=== PATIENT | male | born 1990 | race Caucasian/White ===

== ENCOUNTER → 2016-03-05 | Outpatient (CLI) | payer BC ==
[~2016-03-05] MED LIST: HYDR-3875 PO; MELA5TAB14 PO; METH5TAB5 PO; NITR-68 PO; TAMS0.4C98 PO
--- NOTE | 2016-03-05 13:51 | Diagnostic Imaging Report ---
INDICATION: Nephrolithiasis, post ESWL. TECHNIQUE: KUB obtained at 1:12 p.m. and compared with 02/06/2016. FINDINGS: Abdominal bowel gas pattern is unremarkable. There are no suspicious calculi over the pelvis. The calcification to the left of L4 visualized in the prior study is no longer seen. There are no overt calculi overlying the renal shadows. IMPRESSION: No radiopaque calculi visualized at this time. Unremarkable bowel gas pattern. Dictated by: Dictated on workstation # [id number]
== END ==
LOC: RAD 12:52
PROVIDERS: ATTEND Urology
DX: N20.0 Calculus of kidney (principal); Z98.890 Other specified postprocedural states
CPT/HCPCS: 74000

== ENCOUNTER → 2018-04-20 | Outpatient (CLI) | payer BC ==
--- NOTE | 2018-04-20 10:24 | Diagnostic Imaging Report ---
INDICATION: Injury to right hand. TIME OF EXAM: 09:41 a.m. Three views right hand were obtained. Images are obscured due to overlying cast material. There appears to be a fracture of the distal fifth metacarpal with mild volar angulation of the distal fracture fragment. Remaining metacarpals are intact. Phalanges are somewhat obscured as well but no gross abnormality is seen. Carpus is unremarkable. IMPRESSION: Limited study. There appears to be a mildly angulated fracture of the distal fifth metacarpal. Dictated by: Dictated on workstation # [id number]
--- NOTE | 2018-04-20 11:02 | Diagnostic Imaging Report ---
Indication: Injury to right hand AP, oblique, and lateral views of the right hand are obtained at 1024 hrs am, and compared to same day at 941 hours a.m. Overlying cast is in place. Fracture of the distal aspect of fifth metacarpal is noted, with improved alignment compared to the previous study. There is no other bony abnormality. IMPRESSION: Limited study. Improved alignment of fifth metacarpal fracture when compared to study earlier today. Dictated by: Dictated on workstation # [id number]
== END ==
LOC: RAD FS 09:51
PROVIDERS: ATTEND Nurse Practitioner
DX: S62.336A Displaced fracture of neck of fifth metacarpal bone, right hand, initial encounter for closed fracture (principal)
CPT/HCPCS: 73130

== ENCOUNTER → 2018-05-04 | Outpatient (CLI) | payer BC ==
--- NOTE | 2018-05-04 08:37 | Diagnostic Imaging Report ---
Indication: Fifth metacarpal fracture. Four views of the right hand are obtained and compared with 04/20/2018. Fifth metacarpal fracture appears in near-anatomic alignment with overlying cast in place. No other bony abnormality seen. Impression: Well-aligned fifth metacarpal fracture with no new bony abnormality. Dictated by: Dictated on workstation # [id number]
== END ==
LOC: RAD FS 08:20
PROVIDERS: ATTEND Nurse Practitioner
DX: S62.306A Unspecified fracture of fifth metacarpal bone, right hand, initial encounter for closed fracture (principal)
CPT/HCPCS: 73130

== ENCOUNTER → 2018-05-18 | Outpatient (CLI) | payer BC ==
--- NOTE | 2018-05-18 08:53 | Diagnostic Imaging Report ---
INDICATION: Followup fifth metacarpal fracture. Time of exam: 8:43 AM Correlation is made with prior radiographs from 05/04/2018. The cast has been removed. Fracture of the distal fifth metacarpal is again seen. Fracture lines remain clearly visible. There is a small amount of callus formation present consistent with some healing. No displacement or angulation is identified. IMPRESSION: Healing distal fifth metacarpal fracture. However, the fracture lines remain clearly visible. Dictated by: Dictated on workstation # [id number]
== END ==
LOC: RAD FS 08:37
PROVIDERS: ATTEND Nurse Practitioner
DX: S62.326D Displaced fracture of shaft of fifth metacarpal bone, right hand, subsequent encounter for fracture with routine healing (principal)
CPT/HCPCS: 73130

== ENCOUNTER → 2018-06-01 | Outpatient (CLI) | payer BC ==
--- NOTE | 2018-06-01 08:42 | Diagnostic Imaging Report ---
INDICATION: Followup fracture right hand AP, oblique, and lateral views of the right hand obtained and compared 05/18/18. Fracture of fifth metacarpal shaft again noted with signs of early callus formation. There is no change in alignment compared to the previous study. Remaining bony structures are intact. IMPRESSION: Well aligned fifth metacarpal fracture with signs of early healing. Dictated by: Dictated on workstation # [id number]
== END ==
LOC: RAD FS 08:24
PROVIDERS: ATTEND Nurse Practitioner
DX: S62.326D Displaced fracture of shaft of fifth metacarpal bone, right hand, subsequent encounter for fracture with routine healing (principal)
CPT/HCPCS: 73130

== ENCOUNTER 2019-01-14 06:19 | Emergency (ER) | payer BC ==
[~2019-01-14] VITALS: Ht 175 cm; Wt 65.9 kg
[2019-01-14] MEDS ORDERED: ONDANSETRON 4 MG (ZOFRAN) ORAL DISSOLVE TAB PO STA (06:39)
[2019-01-14] MEDS ORDERED: ACETAMINOPHEN 325 MG TABLET PO ONE (06:45)
[2019-01-14] MEDS ORDERED: FAMOTIDINE 20 MG (PEPCID) TABLET PO ONE (06:45)
--- NOTE | 2019-01-14 06:45 | ED Abdominal Pain ---
General Chief Complaint: Abdominal/GI Problems Stated Complaint: VOMITING Nursing Triage Note: pt states vomiting started around 0300 with diarrhea. pt able to drink some water earlier but felt nauseated Sepsis Screen: No Definite Risk History of Present Illness Date Seen by Provider: Jan 14, 2019 Time Seen by Provider: 06:30 Initial Comments The patient is a 28-year-old male who presents with concern for acute onset of gastrointestinal illness involving 3 episodes of watery nonbloody vomiting and 3 episodes of watery diarrhea, all with onset overnight. The patient's child as well as other family members are sick with similar illness. Associated mild epigastric discomfort. No associated fevers, hematemesis, hematochezia, melena, cough, shortness of breath or chest pain, lower or specifically right sided abdominal pain, flank pain, back pain, dysuria or hematuria, recent unusual foods, unusual travel, antibiotic use. Allergies and Home Medications Allergies Coded Allergies: azithromycin (Verified Allergy, Intermediate, HIVES, 02/01/16) loracarbef (Verified Allergy, Intermediate, HIVES, 02/01/16) Home Medications Hydrocodone/Acetaminophen 1 Each Tablet, 1-2 EACH PO Q4H Prescribed by: MARLYN PINTO on 02/06/16 09 Melatonin 5 Mg Tablet, 5 MG PO HS, (Reported) Methimazole 5 Mg Tablet, 5 MG PO DAILY, (Reported) Nitrofurantoin Macrocrystal 100 Mg Capsule, 100 MG PO BID Prescribed by: MARLYN PINTO on 02/06/16 09 Tamsulosin HCl 0.4 Mg Cap, 0.4 MG PO DAILY, (Reported) Tamsulosin HCl 0.4 Mg Cap, 0.4 MG PO DAILY Prescribed by: MARLYN PINTO on 02/06/16 09 Patient Home Medication List Home Medication List Reviewed: Yes Review of Systems Review of Systems Constitutional: see HPI All Other Systems Reviewed Negative Unless Noted: Yes (Negative excepted noted.) Past Ivomcjj-Xjhdwd-Useccm Hx Past Med/Social Hx: Reviewed Nursing Past Med/Soc Hx Patient Social History Alcohol Use: Denies Use Recreational Drug Use: No Smoking Status: Never a Smoker Recent Foreign Travel: No Contact w/Someone Who Travel: No Recent Infectious Disease Expo: No Recent Hopitalizations: No Physical Abuse: No Sexual Abuse: No Mistreated: No Fear: No Seasonal Allergies Seasonal Allergies: No Past Medical History Surgeries: Yes Ear Surgery, Tonsillectomy Respiratory: No Asthma Cardiac: No Neurological: No Reproductive Disorders: No Sexually Transmitted Disease: No HIV/AIDS: No Genitourinary: No Kidney Stones Gastrointestinal: No Gastroesophageal Reflux Musculoskeletal: No Endocrine: No Hypothyroidsim HEENT: No Loss of Vision: Bilateral Hearing Impairment: Denies Cancer: No Psychosocial: No Integumentary: No Blood Disorders: No Adverse Reaction/Blood Tranf: No (N/A) Family Medical History Reviewed Nursing Family Hx Physical Exam Vital Signs Vital Signs - First Documented 01/14/19 06:28 Temp 36.6 Pulse 102 Resp 16 B/P (MAP) 113/73 (86) Pulse Ox 99 O2 Delivery Room Air Capillary Refill : Less Than 3 Seconds Height/Weight/BMI Height: 5'9.00" Weight: 165lbs. 0.0oz. 74.469866ks; 21.00 BMI Method: General Appearance: no apparent distress Exam Comments This is a young male appearing nontoxic and in no acute distress. Head is normocephalic and atraumatic. Neck is supple and nontender. Oropharynx is moist. Lungs are clear to auscultation in all stations. There is a normal S1 and S2 without rubs or gallops and capillary refill is appropriate, less than 2 seconds globally. Abdomen is soft and nondistended with mild epigastric tenderness to palpation without rebound or guarding. Skin is warm and dry without cyanosis, clubbing or edema. Psychiatrically, the patient demonstrates appropriate mood and affect and is alert. Progress/Results/Core Measures Results/Orders My Orders Orders - YAQUELIN SALAZAR MD Ondansetron Oral Dissolve Tab (Zofran (01/14/19 06:39) Famotidine Tablet (Pepcid Tablet) (01/14/19 06:45) Acetaminophen Tablet/Caplet (Tylenol T (01/14/19 06:45) Dicyclomine Capsule (Bentyl Capsule) (01/14/19 07:00) Medications Given in ED Current Medications Medications Dose Ordered Sig/Seth Route Start Time Stop Time Status Last Admin Dose Admin Acetaminophen 975 mg ONCE ONCE PO 01/14/19 06:45 01/14/19 06:46 DC 01/14/19 06:46 975 MG Famotidine 20 mg ONCE ONCE PO 01/14/19 06:45 01/14/19 06:46 DC 01/14/19 06:45 20 MG Vital Signs/I&O 01/14/19 06:28 Temp 36.6 Pulse 102 Resp 16 B/P (MAP) 113/73 (86) Pulse Ox 99 O2 Delivery Room Air Blood Pressure Mean: 86 POS Progress Progress Note : Time: 06:44 Progress Note Vital signs and clinical examination reassuring. Young man with mild vomiting and diarrheal illness, likely representing a viral gastroenteritis. Family members have the same illness at home. We will treat symptomatically with antiemetic and antidiarrheal agents and will have the patient copiously orally hydrate and plan will be for him to follow-up very closely with his primary care physician after the holiday. He understands in the meantime that if he feels worse is that of better or develops other new symptoms of concern that he will need to return immediately for reevaluation. All questions are answered. Departure Impression Primary Impression: Acute infectious diarrhea Additional Impression: Vomiting Qualified Codes: R11.2 - Nausea with vomiting, unspecified Disposition: HOME, SELF-CARE Condition: Improved Departure-Patient Inst. Referrals: JIMMY BOB APRN (PCP/Family) Primary Care Physician Patient Instructions: Nausea and Vomiting, Adult (DC), Diarrhea in Adolescents and Adults Add. Discharge Instructions: Use the medication as prescribed to treat your vomiting and diarrhea. Follow up with your primary care doctor immediately after the holiday. If you feel worse instead of better or have further new symptoms of concern, please return to the emergency department immediately for reevaluation. Scripts Loperamide HCl (Loperamide) 2 Mg Tablet 2 MG PO Q4H for diarrhea/loose stool, #24 TAB Prov: YAQUELIN SALAZAR MD 01/14/19 Ondansetron (Ondansetron Odt) 4 Mg Tab.rapdis 4 MG PO Q8H for vomiting, #12 TAB Prov: YAQUELIN SALAZAR MD 01/14/19 Dicyclomine HCl (Dicyclomine HCl) 10 Mg Capsule 10 MG PO Q6H for abd pain, #20 CAP Prov: YAQUELIN SALAZAR MD 01/14/19 Acetaminophen (Tylenol) 325 Mg Capsule 650 MG PO Q4H for Pain, #50 CAP Prov: YAQUELIN SALAZAR MD 01/14/19 YAQUELIN SALAZAR MD Jan 14, 2019 06:45 POS
[2019-01-14] MEDS ORDERED: DICY10CA12 PO (06:51)
[2019-01-14] MEDS ORDERED: ONDA4TAB11 PO (06:51)
[2019-01-14] MEDS ORDERED: LOPE2TAB34 PO (06:51)
[2019-01-14] MEDS ORDERED: ACET325C5 PO (06:51)
[2019-01-14 06:53] VITALS: BP 113/73
[2019-01-14] MEDS ORDERED: DICYCLOMINE 10 MG (BENTYL) CAP PO SCH (07:00)
== END 2019-01-14 06:53 | disposition home or self-care (01) ==
LOC: EDUNIT# 06:19 → ER FS 06:23
DX: A09 Infectious gastroenteritis and colitis, unspecified (principal); R11.2 Nausea with vomiting, unspecified; J45.909 Unspecified asthma, uncomplicated; K21.9 Gastro-esophageal reflux disease without esophagitis; E03.9 Hypothyroidism, unspecified; Z87.442 Personal history of urinary calculi; Z88.1 Allergy status to other antibiotic agents; Z90.89 Acquired absence of other organs
CPT/HCPCS: 99283

== ENCOUNTER → 2022-02-26 | Outpatient (CLI) | payer BC ==
[~2022-02-26] MED LIST changes: +ACET325C7 PO; +DICY10CA12 PO; +LOPE2TAB34 PO; -METH5TAB5 PO; +METH5TAB95 PO; +ONDA4TAB11 PO; -TAMS0.4C98 PO; +TMSL.4C PO
--- NOTE | 2022-02-26 15:55 | Diagnostic Imaging Report ---
EXAMINATION: Chest 2 view HISTORY: Chest wall pain COMPARISON: None available. FINDINGS: The lungs are clear without edema or pneumonia. No pleural effusion or pneumothorax. Heart size is normal. IMPRESSION: 1. Clear lungs. Dictated by: Dictated on workstation # [id number]
== END ==
LOC: RAD FS 14:42
PROVIDERS: ATTEND Allergy & Immunology
DX: R07.89 Other chest pain (principal)
CPT/HCPCS: 71046

== ENCOUNTER → 2022-12-27 | Outpatient (CLI) | payer BC ==
[~2022-12-27] MED LIST changes: +DICY-11 PO; -DICY10CA12 PO
--- NOTE | 2022-12-27 15:33 | Diagnostic Imaging Report ---
Indication: Kidney stones on CT. Hematuria. Examination: Abdomen on 12/27/2022. Comparison: No recent CT available for comparison. Findings: 2 views of the abdomen. There is a nonobstructive bowel gas pattern with no dilated loops of bowel. No free air. No obvious stone seen in the expected tiny punctate densities in the region of the right kidney possibly stones. No other suspicious hyperdensities noted. Impression: 1. Punctate hyperdensities in the right upper quadrant possibly within the right kidney or in the overlying soft tissues. Remaining examination unremarkable with a nonobstructive bowel gas pattern. Dictated by: Dictated on workstation # [id number]
== END ==
LOC: RAD FS 10:38
PROVIDERS: ATTEND Urology
DX: N20.0 Calculus of kidney (principal)
CPT/HCPCS: 74018